=== PATIENT | male | born 1970 | race Caucasian/White ===

== ENCOUNTER 2024-11-04 19:00 | Inpatient (IN) | payer OTHER ==
[2024-11-04 19:22] VITALS: BMI 29.5
[2024-11-04] MEDS ORDERED: hydrOXYzine PAMOATE 25 MG CAPSULE (FP) PO PRN (20:02)
[2024-11-04] MEDS ORDERED: MAGNESIUM HYDROX 2400MG/30ML ORAL SUSPENSION 30 ML CUP PO PRN (20:02)
[2024-11-04] MEDS ORDERED: NALOXONE (NARCAN) HCL 4 MG/0.1 ML SPRAY NS PRN (20:02)
[2024-11-04] MEDS ORDERED: IBUPROFEN 400 MG TABLET (FP) PO PRN (20:02)
[2024-11-04] MEDS ORDERED: BENZONATATE 200 MG CAPSULE PO PRN (20:02)
[2024-11-04] MEDS ORDERED: IBUPROFEN 600 MG TABLET (FP) PO PRN (20:02)
[2024-11-04] MEDS ORDERED: MAG HYDROX/AL HYDROX/SIMETH 30 ML UNIT-DOSE CUP PO PRN (20:02)
[2024-11-04] MEDS ORDERED: BENZOCAINE/MENTHOL (CHLORASEPTIC ) LOZENGE MM PRN (20:02)
[2024-11-04] MEDS ORDERED: POLYETHYLENE GLYCOL (HEALTHYLAX) 3350 17 GM PACKET PO PRN (20:02)
[2024-11-04] MEDS ORDERED: LOPERAMIDE HCL 2 MG CAPSULE PO PRN (20:02)
[2024-11-04] MEDS ORDERED: ACETAMINOPHEN 325 MG TABLET (FP) PO PRN (20:02)
[2024-11-04] MEDS ORDERED: guaiFENesin 600 MG TABLET.ER (FP) PO PRN (20:02)
[2024-11-04] MEDS ORDERED: NICOTINE POLACRILEX 2 MG GUM BUC PRN (20:02)
[2024-11-04] MEDS ORDERED: NICOTINE POLACRILEX 2 MG LOZENGE BC PRN (20:02)
[2024-11-04] MEDS: MELATONIN 5 MG TABLETS PO SCH (21:40)
[2024-11-04] MEDS: THIAMINE 100 MG TABLET PO SCH (21:40)
[2024-11-05 09:27] LABS: MCHC 32.1 g/dl (32.3-36.5); MEAN CELL VOLUME 91.0 fl (79.0-92.2); MEAN PLT VOLUME 10.1 fl (9.4-12.4); RDW 14.3 % (12.2-16.1)
[2024-11-05 09:39] LABS: CO2 30 mmol/L (21-32); GLUCOSE,RANDOM 98 mg/dL (74-106)
[2024-11-05 09:42] LABS: SGPT/ALT 20 U/L (13-61)
[2024-11-05 09:43] LABS: CREATININE 0.8 mg/dL (0.55-1.3); SGOT/AST 33 U/L (15-37)
[2024-11-05 09:44] LABS: TOT PROT 6.2 g/dl (6.4-8.2)
[2024-11-05 09:45] LABS: ALK PHOS 63 U/L (45-117)
[2024-11-05] MEDS: PRENATAL VITAMINS W/ FOLIC ACID TABLET (FP) PO SCH (10:23)
[2024-11-05] MEDS ORDERED: TUBERCULIN PPD 5 TU/0.1ML SYRINGE (IN PATIENT USE ONLY) ID ONE (11:30)
[2024-11-05] MEDS: TUBERCULIN PPD 5 TU/0.1ML SYRINGE (IN PATIENT USE ONLY) ID ONE (11:45)
[2024-11-05 12:46] LABS: SYPHILIS W/ RPR CONF NON-REACTIVE (NONREACTIVE)
[2024-11-05 13:19] LABS: HCV DIAGNOSTIC IN-HOUSE W/RFLX NON-REACTIVE (NONREACTIVE)
[2024-11-05 15:09] LABS: URINE APPEARANCE CLEAR; URINE BILIRUBIN NEGATIVE (NEGATIVE); URINE COLOR YELLOW; URINE GLUCOSE (UA) NEGATIVE (NEGATIVE); URINE KETONE NEGATIVE (NEGATIVE); URINE LEUK ESTERASE NEGATIVE (NEGATIVE); URINE NITRITE NEGATIVE (NEGATIVE); URINE PROTEIN NEGATIVE (NEGATIVE); URINE UROBILINOGEN 0.2 mg/dL (0.2-1.0)
[2024-11-05] MEDS: DIVALPROEX SODIUM 500 MG TABLET E.C. PO SCH (21:19)
[2024-11-06] MEDS: BICTEGRAV/EMTRICIT/TENOFOV (BIKTARVY) 50-200-25 MG TABLET PO SCH (10:53)
[2024-11-06 11:28] VITALS: BP 110/79; PULSE 66; RESP 18; TEMP 96.9
== END 2024-11-06 11:39 | disposition home or self-care (01) | DRG 772 ==
LOC: YASAS 19:00 → Y3E 20:28
PROVIDERS: ADMIT Neuromusculoskeletal Medicine & OMM; ATTEND Allergy & Immunology
PROC: HZ42ZZZ Group Counseling for Substance Abuse Treatment, Cognitive-Behavioral (ICD-10-PCS; principal; 2024-11-06)
DX: F14.20 Cocaine dependence, uncomplicated (principal); F15.20 Other stimulant dependence, uncomplicated; F10.20 Alcohol dependence, uncomplicated; F43.10 Post-traumatic stress disorder, unspecified; F31.9 Bipolar disorder, unspecified; Z59.02 Unsheltered homelessness; Z96.643 Presence of artificial hip joint, bilateral
CPT/HCPCS: 36415; 80053; 80305; 80307; 81003; 85027; 86780; 86803; 93005; 93010